=== PATIENT | female | born 1995 | race Caucasian/White ===

== ENCOUNTER 2022-01-09 16:21 | Emergency (ER) | payer MEDICAID ==
[~2022-01-09 16:21] MED LIST: CIPR-278 PO; HYDR-4723 PO; METR500 PO
[2022-01-09] MEDS ORDERED: CefTRIAXone SODIUM 1 GM/VIAL IM ONE (16:45)
[2022-01-09] MEDS ORDERED: AZITHROMYCIN 500 MG TABLET PO ONE (16:45)
[2022-01-09] MEDS ORDERED: LIDOCAINE/PF 1% 2 ML VIAL IM ONE (16:45)
[2022-01-09] MEDS ORDERED: DOXY-354 PO (16:58)
[2022-01-09 17:45] VITALS: BP 119/82
== END 2022-01-09 17:58 | disposition home or self-care (01) ==
LOC: EMS 16:40
DX: N34.2 Other urethritis (principal); F17.210 Nicotine dependence, cigarettes, uncomplicated; F10.90 Alcohol use, unspecified, uncomplicated
CPT/HCPCS: 99283; 96372; J0696; J3490; Q9967